=== PATIENT | male | born 1945 | race African-American/Black ===

== ENCOUNTER → 2016-12-18 | Outpatient (CLI) | payer OTHER ==
[2015-03-01 08:56] VITALS: BP 112/79
[2016-12-18 09:03] LABS: BLOOD UREA NITROGEN 22 mg/dL (7-18); CALCIUM 9.6 mg/dL (8.5-10.1); CARBON DIOXIDE 28.7 mmol/L (21-32); CHLORIDE 104 mmol/L (98-107); CHOL/HDL RATIO 3.2 (0.0-5.0); CHOLESTEROL 157 mg/dL (0-200); CREATININE 1.49 mg/dL (0.70-1.30); HDL CHOLESTEROL 49 mg/dL (40-60); SODIUM 139 mmol/L (136-145); TRIGLYCERIDES 80 mg/dL (0-150); eGFR BLACK RACES 60 (>60); eGFR NON BLACK RACES 49 (>60)
== END ==
LOC: LAB 08:22
PROVIDERS: ATTEND Internal Medicine Cardiovascular Disease
DX: E78.4 Other hyperlipidemia (principal)
CPT/HCPCS: 36415; 80048; 80061

== ENCOUNTER → 2017-03-26 | Outpatient (CLI) | payer OTHER ==
[2015-03-01 08:56] VITALS: BP 112/79
== END ==
LOC: LAB 07:43
PROVIDERS: ATTEND Internal Medicine Gastroenterology
DX: K64.0 First degree hemorrhoids (principal)
CPT/HCPCS: 82270